=== PATIENT | male | born 1980 | race Caucasian/White ===

== ENCOUNTER → 2021-03-31 | Outpatient (CLI) | payer SELFPAY | END | disposition home or self-care (01) | LOC: LABWHC1 07:26 | PROVIDERS: ATTEND Surgery Plastic and Reconstructive Surgery | DX: I11.9 Hypertensive heart disease without heart failure (principal) | CPT/HCPCS: 36415; 93005 ==

== ENCOUNTER 2021-04-14 08:04 | Day surgery (SDC) | payer OTHER ==
[2021-04-12 11:50] VITALS: BMI 44.0
--- NOTE | 2021-04-14 07:40 | P.GSHP ---
History of Present Illness H&P Date: 04/14/21 CHIEF COMPLAINT: Tumor right cheek HISTORY OF PRESENT ILLNESS: The patient is a 40 year-old male with history of tumor along the right cheek for over one year. Reports occasional tenderness. He presents today for surgical excision. PAST MEDICAL HISTORY: Please see list and reviewed PAST SURGICAL HISTORY: Please see list and reviewed MEDICATIONS: Please see list and reviewed ALLERGIES: Please see list and reviewed SOCIAL HISTORY: Please see list and reviewed FAMILY HISTORY: Please see list and reviewed REVIEW OF ORGAN SYSTEMS: CONSTITUTIONAL: No reports of fevers or chills. GI: Denies any blood in stools or constipation. PHYSICAL EXAM: VITAL SIGNS: Stable SKIN: Well perfused. Good skin turgor. 2 cm lesion overlying the right cheek Musculoskeletal: No clubbing cyanosis or edema GENERAL: Well developed and in no acute distress. Pleasant. HEENT: No sclera icterus. Extraocular movements grossly intact. Moist buccal mucosa. Head is atraumatic, normocephalic. Hears conversational speech. No nasal drainage. NECK: Supple without lymphadenopathy. No JV distention. CHEST: Non-labored respirations and equal bilateral excursions. CARDIOVASCULAR: Regular rate and rhythm. Palpable 2+ radial pulses. ABDOMEN: Soft. Non-tender. Nondistended. NEUROLOGIC: No focal or lateralizing signs. PSYCH: Appropriate affect. Alert and oriented to person, place and time. ASSESSMENT: 1. Tumor on right cheek, 2 cm. PLAN: 1. Recommend at least an EKG. 2. Excision of right cheek tumor 2 cm described. 3. Time of recovery at least one week. 4. Post excisional care described including avoiding exposure to the sun. 5. Antibiotic prophylaxis. 6. Benefits and risks including numbness, decreased sensation, pain, cosmetic deformity, facial nerve injury were reviewed Past Medical History Past Medical History: Sleep Apnea/CPAP/BIPAP Additional Past Medical History / Comment(s): supposed to use CPAP, hx. of some fx ribs 7-8 yrs. ago after a fall History of Any Multi-Drug Resistant Organisms: None Reported Past Surgical History: No Surgical Hx Reported Additional Past Anesthesia/Blood Transfusion Reaction / Comment(s): no family problems w/anesthesia Smoking Status: Current every day smoker - Past Family History Mother Family Medical History: No Reported History Medications and Allergies Home Medications Medication Instructions Recorded Confirmed Type No Known Home Medications 04/12/21 04/12/21 History Allergies Allergy/AdvReac Type Severity Reaction Status Date / Time No Known Allergies Allergy Verified 04/12/21 11:34
[~2021-04-14 08:04] MED LIST: ACETAMINOPHEN TAB 500 MG TAB PO PRN; GABAPENTIN 300 MG CAP PO PRN; HEPARIN SODIUM,PORCINE/PF 5,000 UNIT/0.5 ML SYRINGE SQ PRN; Pre Op ABX Message 1 EACH MISC MISCELLANE ONE; ceFAZolin 3 GM in SODIUM CHLORIDE 0.9% 100 ML IVPB PRN
[2021-04-14] MEDS ORDERED: LIDOCAINE 1% (10MG/ML) FOR IV START INTRADERMA ONE (08:36)
[2021-04-14] MEDS ORDERED: DEXAMETHASONE SOD PHOSPHATE 4 MG/ML 1 ML VIAL IVP ONE (08:36)
[2021-04-14] MEDS ORDERED: LACTATED RINGERS 1,000 ML IV ONE ×3 (08:36→10:49)
[2021-04-14] MEDS ORDERED: ONDANSETRON 4 MG/2 ML VIAL IVP ONE (08:37)
[2021-04-14] MEDS ORDERED: HEPARIN SODIUM,PORCINE/PF 5,000 UNIT/0.5 ML SYRINGE SQ ONE (08:42)
[2021-04-14] MEDS ORDERED: ONDANSETRON 4 MG/2 ML VIAL ONE (08:42)
[2021-04-14] MEDS ORDERED: fentaNYL (PF) 50 MCG/ML 2 ML AMP ONE (09:32)
[2021-04-14] MEDS ORDERED: SUCCINYLCHOLINE CHLORIDE VIAL 200 MG/10 ML VIAL IV ONE (09:32)
[2021-04-14] MEDS ORDERED: HYDROmorphone (PF) 1 MG/ML ONE (09:32)
[2021-04-14] MEDS ORDERED: LIDOCAINE 1% INJ 10MG/ML (20 ML MDV) ONE (09:32)
[2021-04-14] MEDS ORDERED: ePHEDrine SULFATE/0.9% NACL/PF 50 MG/5 ML SYRINGE IV ONE (09:32)
[2021-04-14] MEDS ORDERED: PROPOFOL 10 MG/ML 20 ML VIAL IV ONE (09:32)
[2021-04-14] MEDS ORDERED: PHENYLEPHRINE-0.9% NACL SYG 1,000 MCG/10 ML SYRINGE ONE (09:32)
[2021-04-14] MEDS ORDERED: MIDAZOLAM 2 MG/2 ML VIAL ONE (09:32)
[2021-04-14] MEDS ORDERED: LIDOCAINE 1%-EPI 1:100,000 20 ML VIAL SQ ONE (10:09)
[2021-04-14 11:13] VITALS: TEMP 98.3
--- NOTE | 2021-04-14 11:45 | P.OP ---
Date of Procedure: 04/14/21 Description of Procedure: SURGEON: ANDRESSA GÓMEZ MD CHIEF WRITER: NONE. PREOPERATIVE DIAGNOSES: 1. Right cheek tumor with recurrence 2. Morbid obesity due to excess calories, BMI 45.1 3. Tobacco use POSTOPERATIVE DIAGNOSES: 1. Right cheek tumor with recurrence 2. Morbid obesity due to excess calories, BMI 45.1 3. Tobacco use OPERATION: 1. Excision of subcutaneous tumor of the right cheek, 3 cm 2. Intermediate closure of right cheek incision, 4 cm. ANESTHESIA: MAC with local anesthestic ESTIMATED BLOOD LOSS: 5 mL. SPECIMENS REMOVED: 1. Right cheek tumor COMPLICATIONS: None. FINDINGS: 1. Subcutaneous tumor along the right cheek, over 3 cm excised INDICATIONS: The patient is a 40 year-old male who presents with recurrence of right cheek tumor excised over 5+ years ago. Surgical options, including excision was discussed. Benefits and risks including but not limited to cosmetic deformity, bleeding, infection, injury to the facial nerve were described. Informed consent was obtained. DESCRIPTION OF PROCEDURE: Patient was brought into the operating room, laid in supine position. After adequate IV sedation, the right cheek was prepped and draped in standard sterile fashion. A timeout protocol was confirmed with the surgical team regarding patient's name including procedures to be performed. Preoperative medications was administered. Next, field block using a 5 to 10 mL of local anesthetic was administered. The forehead and right cheek mass was measured using a ruler with borders marked with indelible marker, over 4 cm in a transverse plane. Soft tissue skin flaps were developed inferiorly and superiorly after using #15 blade into the subcutaneous tissues. Using Adson's, the right cheek mass was dissected circumferentially using hemostats and blunt dissection. Minimal energy source was used. The tumor was completely excised without rupture. Hemostasis was checked. The specimen was passed off and measured to be over 3 cm. Next the wound was closed in layers using 3-0-Vicryl for the subcutaneous tissue followed by 4-0 Monocryl for the dermis in a running subcuticular fashion. Another layer using Exofin tape and liquid glue was applied. The skin was cleansed. Skin colored steri-strips were applied. At the end of the procedure, needle, sponge, and instrument count had been verified correct by the windmill technician. The patient was taken to the postanesthesia care unit in stable condition. Plan - Discharge Summary Discharge Rx Participant: Yes New Discharge Prescriptions: New Ibuprofen [Motrin] 600 mg PO Q8HR PRN #30 tab PRN Reason: Pain Acetaminophen Tab [Tylenol Tab] 1,000 mg PO Q6HR PRN #30 tablet PRN Reason: Pain Discharge Medication List Acetaminophen Tab [Tylenol Tab] 1,000 mg PO Q6HR PRN #30 tablet 04/14/21 [Rx] Ibuprofen [Motrin] 600 mg PO Q8HR PRN #30 tab 04/14/21 [Rx] Follow up Appointment(s)/Referral(s): Andressa Gómez MD [STAFF PHYSICIAN] - 04/21/21 Patient Instructions/Handouts: Excision of Skin Lesion (DC) Activity/Diet/Wound Care/Special Instructions: DO NOT REMOVE DRESSING. May shower. Gently wash and pat dry over dressing. EXPECT BRUISING OVER FACE FOR 1 WEEK Avoid blowing nose as might cause bleeding and bruising. Sleep on elevated pillow at least 2-3 Diet as tolerated Use Tylenol scheduled for the next 24-48 hours for best pain relief. Discharge Disposition: HOME SELF-CARE
[2021-04-14 12:23] VITALS: RESP 16
[2021-04-14 13:07] VITALS: PULSE 98
[2021-04-14 13:09] VITALS: BP 122/76
== END 2021-04-14 12:55 | disposition home or self-care (01) ==
LOC: OR 08:04
PROVIDERS: ATTEND Surgery Plastic and Reconstructive Surgery
DX: D21.0 Benign neoplasm of connective and other soft tissue of head, face and neck (principal); E66.01 Morbid (severe) obesity due to excess calories; Z68.42 Body mass index [BMI] 45.0-49.9, adult; G47.33 Obstructive sleep apnea (adult) (pediatric); Z91.19 Patient's noncompliance with other medical treatment and regimen; Z72.0 Tobacco use
CPT/HCPCS: 21012; 88304; J2250; J0330; J1100; J0690; J2405; J2001; J3010; J1170; J2370; J2704; J1644; 88305

== ENCOUNTER → 2021-11-03 | Outpatient (CLI) | payer OTHER ==
--- NOTE | 2021-11-03 14:27 | CONS ---
CONSULTATION DATE OF SERVICE: 11/03/2021 This 41-year-old gentleman has been evaluated in [facility] for obstructive sleep apnea-hypopnea syndrome. HISTORY OF PRESENT ILLNESS/SLEEP-WAKE EVALUATION: The patient has had a history of obstructive sleep apnea for 7 years, according to him. For the last 3 years he has been on treatment with CPAP; and originally when he was started on treatment, he felt better, but now while he continues to use his CPAP he feels still tired and sleepy and wakes up from sleep. Recently he has not been using his CPAP on a regular basis. His sleep schedule is from 10 p.m. until 6 a.m. on weekdays and from midnight until 8 or 9 a.m. on weekends. No problems with falling asleep, although he has a TV set in the bedroom. He sleeps on the back and side positions. He still may snore while using CPAP. He wakes up from sleep several times, with up to 3 episodes of nocturia. No history of hypnagogic hallucinations, sleep paralysis or cataplexy. [place] Sleepiness Scale is in extremely high range at 21. The patient's weight has increased significantly by about 70 pounds since previous sleep study. I checked his CPAP unit. Range of the pressure is 5 to 15, automatic regimen. Average pressure is 15, usage 2/30 nights for the last month, one night for more than 4 hours, average 6.3 hours per night. Apnea-hypopnea index 30.6. PAST MEDICAL HISTORY: Positive for GERD. PAST SURGICAL HISTORY: None. MEDICATIONS: Naproxen, and recently prednisone. Medication for heartburn; patient does not remember the name. SOCIAL HISTORY: Positive for smoking for about 25 pack/years. Continues smoking. Alcohol consumption occasional. FAMILY HISTORY: Hypertension, heart problems, asthma. REVIEW OF SYSTEMS: Snoring, multiple awakenings from sleep while using his CPAP equipment, snoring, sleepiness during the day while using his CPAP. No fevers. No double vision. No recent chest pain. No shortness of breath. No abdominal pain. No bleeding episodes. No blood in the urine. No seizure episodes. PHYSICAL EXAMINATION: GENERAL: Pleasant gentleman without distress. VITAL SIGNS: BP 122/78, HR 109, RR 18, height 5 feet 10-1/4 inches, weight 330.8 pounds, body mass index 47.3, temperature 97.9, oxygen saturation at room air 92%. HEENT: PERRLA, EOMI, evaluation of oropharynx showed tongue protrudes midline. Extremely low position of soft palate. NECK: Supple, no JVD. Thyroid is not palpable. Neck measures 21-1/2 inches in circumference. LUNGS: Clear to percussion and to auscultation. Good air exchange. No wheezing or rhonchi. HEART: S1, S2 regular. No murmurs, gallops, or rubs. ABDOMEN: Obese. EXTREMITIES: No clubbing or cyanosis. COLLEGE INTERN: Awake, alert, and oriented X3. Cranial nerves 2 to 7 intact. There is no fasciculation or atrophy. noted. No focal deficits observed. IMPRESSION: 1. Severe obstructive sleep apnea-hypopnea syndrome; according to patient, apnea- hypopnea index was more than 70 during diagnostic sleep study. The patient continues to snore and has multiple awakenings while using his CPAP. Apnea- hypopnea index reading from the machine increased to 30.6. He has an extremely wide neck, 21-1/2 inches in circumference, high sleepiness by results of [place] Sleepiness Scale; severe obstructive sleep apnea-hypopnea syndrome. 2. Morbid obesity; BMI 47.3. 3. History of recent upper respiratory infection. 4. History of gastroesophageal reflux disease. 5. History of cyst removed from the face. PLAN: 1. I changed the regimen in his CPAP unit to the range 5 to 20 cm of water. 2. CPAP and if necessary BiPAP titration for correction of respiratory abnormalities during sleep. 3. Obtain results of previous sleep studies. 4. Aggressive losing weight program. 5. No driving if feeling any sleepiness. Thank you very much for referring this patient for consultation. Sincerely, Agustin Loja MD, PhD, FAASM Diplomat of [place] [employer] Sleep Medicine [employer] [place] [employer] [place] MMODL / TIARRAN: [id number] /
== END ==
LOC: SLEEP 10:51
PROVIDERS: ATTEND Internal Medicine
DX: G47.33 Obstructive sleep apnea (adult) (pediatric) (principal); E66.01 Morbid (severe) obesity due to excess calories; Z68.42 Body mass index [BMI] 45.0-49.9, adult; Z87.09 Personal history of other diseases of the respiratory system; Z87.19 Personal history of other diseases of the digestive system; Z98.890 Other specified postprocedural states; Z99.89 Dependence on other enabling machines and devices
CPT/HCPCS: 99211